=== PATIENT | female | born 1980 | race Caucasian/White ===

== ENCOUNTER 2021-07-23 10:17 | Day surgery (SDC) | payer SELFPAY, OTHER ==
[2021-07-23 11:40] LABS: Internal QC Validated? YES +Cl - CLEAR BKGD; Pregnancy, Urine Negative Negative
[2021-07-23 11:47] VITALS: BP 117/63; PULSE 82; RESP 14; TEMP 36.9; O2SAT 99; BMI 24.2
[2021-07-23] MEDS: Lactated Ringers 1,000 ML 15 ML IV (11:53)
[2021-07-23] MEDS: Cefazolin 2 GM in 0.9% Normal Saline 100 ML IV (13:03)
--- NOTE | 2021-07-23 13:04 | PCM.DC ---
Discharge Instructions Diet Discharge Diet: No restrictions Activity Discharge Activity: Return to Normal Activity May resume sexual activity in: No Restrictions Dressing / Incision Call your doctor if you observe: Fever of 101 or Higher, Inability to urinate and Inability to have a bowel movement Follow Up Care Please Follow Up With: Aissatou Sandy MD When: 2-3 weeks in the office with KUB for stent removal Test Results: Test results from this visit will be discussed in further detail at your follow-up appointment, if applicable. Discharge Plan Admission Attending Provider: Aissatou Sandy Primary Care Provider: Christo Warren Discharge Orders/Prescriptions Prescriptions: New ondansetron HCl [ondansetron HCl] 8 MG tablet 8 mg PO Q8H PRN PRN (Reason: Nausea) 7 Days Qty: 20 RF: 0 phenazopyridine [Pyridium] 200 MG tablet 200 mg PO TID PRN PRN (Reason: Bladder Spasms) 7 Days Qty: 30 RF: 0 sulfamethoxazole-trimethoprim [sulfamethoxazole-trimethoprim] 1 TABLET tablet 1 tab PO BID 3 Days Qty: 6 RF: 0 oxycodone-acetaminophen [Percocet] 5-325 mg tablet 1 tab PO Q8H PRN (Reason: pain) 7 Days Qty: 20 RF: 0 Continued calcium 600 mg Capsule 600 mg PO DAILY RF: 0 ftklvyjw-bgb-Vr-FA 1 mg Tablet 1 tab PO DAILY RF: 0 iron 18 mg Tablet 10 mg PO DAILY RF: 0 Referrals / Follow Up: Christo Warren MD [Primary Care Provider] - Disposition Disposition (needs filled in before D/C Order can be placed): Home, Self Care
--- NOTE | 2021-07-23 13:07 | PCM.OPRPT ---
Problems Associated Problem List Diagnoses (1) Kidney stone: (2) Hydronephrosis, right: Report of Operation Date of Procedure: 07/23/21 Pre-Operative Diagnosis: right renal calculus, right hydronephrosis Post-Operative Diagnosis: same, right ureteropelvic junction obstruction Surgery/Procedure Performed:: cystoscopy, right retrograde pyelogram, right ureteral stent insertion, right renal extracorporeal shockwave lithotripsy Surgeon: Aissatou Sandy Type of Anesthesia: General Specimen's removed: none Description of Procedure: The patient is a 41-year-old female with a right lower pole renal calculus with hydronephrosis consistent with a UPJ obstruction. She presents for evaluation and management of her stone. Informed consent was obtained. The patient was taken to the operating room and placed on the operating room table. Anesthesia monitored the head, neck, airway, IV access and vital signs throughout the case. Once anesthesia was appropriately administered, the patient was placed into dorsal lithotomy position and was prepped and draped in usual sterile fashion. The cystoscope was inserted through the urethra under direct visualization. The bladder mucosa in its entirety was visualized. The right ureteral orifice was very small, almost pinpoint and was unable to accommodate the 8 Moroccan cone-tip catheter at first. 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 There is hydronephrosis. At this time a 6 Moroccan 26 cm JJ stent was inserted over the Glidewire with good curling in the renal pelvis as well as the urinary bladder. The bladder was emptied and the cystoscope was removed. At this time the patient was positioned and 3000 shocks were applied to the lower pole renal calculus which appeared to be well fragmented at the conclusion of the case. At this time the patient was awakened and taken to the recovery room in good condition. There were no complications during this procedure. Grafts/Implants Used: 6x26 JJ stent Complications none Admit VTE Documentation VTE Present on Admission: Yes VTE Mechan Device Prophylaxis: SCD's VTE Pharm Prophylaxis ordered?: No Reason prophylaxis not ordered:: Treatment Not Indicated
[2021-07-23 14:15] VITALS: BP 117/63; BP 97/64; PULSE 61; RESP 12; TEMP 36.3; O2SAT 100
[2021-07-23 14:30] VITALS: BP 112/73; BP 117/63; PULSE 63; RESP 12; O2SAT 100
[2021-07-23 14:45] VITALS: BP 117/63; BP 119/79; PULSE 54; RESP 12; O2SAT 100
[2021-07-23 15:00] VITALS: BP 114/71; BP 117/63; PULSE 61; RESP 16; TEMP 35.9; O2SAT 100
[2021-07-23] MEDS: oxyCODONE 5 MG Tablet PO (15:30)
[2021-07-23] MEDS: Acetaminophen 325 MG Tablet PO (15:30)
[2021-07-23 16:00] VITALS: BP 114/67; BP 117/63; PULSE 63; RESP 16; TEMP 37.1; O2SAT 100
== END 2021-07-23 16:15 | disposition home or self-care (01) ==
LOC: SDC 10:18 → AC 10:18
PROVIDERS: Anesthesiology; PCP Family Medicine; Referring Provider Urology; Visit Provider Urology
PROC: (CPT 50590; principal; 2021-07-23 12:30)
DX: N13.2 Hydronephrosis with renal and ureteral calculous obstruction (principal)
CPT/HCPCS: 50590; 52332; 00873; 81025; 87426; C9803; J7120; C2617; J2405

== ENCOUNTER → 2021-08-08 | Outpatient (CLI) | payer SELFPAY, OTHER ==
--- NOTE | 2021-08-08 09:35 | RAD_ITS ---
INDICATION: kidney stones EXAMINATION/TECHNIQUE: X-RAY - XR Abdomen 1 View COMPARISON: None FINDINGS: BOWEL GAS PATTERN: Non-obstructive. Double-J right nephroureteral stent appears in appropriate position. FREE AIR: Not assessed on a single supine view. CALCIFICATIONS: There appears to be 0.9 cm and 0.8 cm renal calculi in the right lower renal pole. There is also a suspected 0.6 cm right upper pole calculus. The left renal shadow is difficult to delineate but no definitive calculi in the expected location of the left kidney. BONES AND SOFT TISSUES: No acute pathology. RAD/Abdomen Single View IMPRESSION: Right-sided nephrolithiasis with appropriate positioning of the double-J right nephroureteral stent. Electronically Signed: Tank Pichardo, at 13:40 EDT ,
== END | disposition home or self-care (01) ==
LOC: MTRAD 09:32
PROVIDERS: PCP Family Medicine; Referring Provider Urology; Visit Provider Urology
DX: N20.0 Calculus of kidney (principal)
CPT/HCPCS: 74018

== ENCOUNTER → 2021-10-01 | Outpatient (CLI) | payer SELFPAY, OTHER ==
--- NOTE | 2021-10-01 08:45 | RAD_ITS ---
STUDY: X-RAY - ABDOMEN/PELVIS REASON FOR EXAM: Female, 41 years old. KIDNEY STONE TECHNIQUE: Single AP view of the abdomen / pelvis. COMPARISON: Comparison is made with prior study 08/08/2021. FINDINGS: There is a moderate amount of colonic fecal material. A right-sided double-J stent catheter is seen with the proximal tip in the right renal pelvis and distal tip in the right side of the bladder. Normal soft tissue structures. Normal visualized osseous structures. RAD/Abdomen Single View IMPRESSION: Right-sided double-J stent catheter. No radiopacity is seen. Electronically Signed: Woody Marcus MD at 13:00 EDT ,
== END | disposition home or self-care (01) ==
PROVIDERS: PCP Family Medicine; Referring Provider Urology; Visit Provider Urology
DX: N20.0 Calculus of kidney (principal)
CPT/HCPCS: 74018

== ENCOUNTER → 2021-10-22 | Outpatient (CLI) | payer SELFPAY, OTHER ==
--- NOTE | 2021-10-22 10:10 | RAD_ITS ---
STUDY: X-RAY - ABDOMEN/PELVIS REASON FOR EXAM: Female, 41 years old. KIDNEY STONE TECHNIQUE: Single AP view of the abdomen / pelvis. COMPARISON: 10/01/2021 FINDINGS: Normal visualized lung bases. There is an unremarkable bowel gas pattern. Right ureteral stent. No definite ureteral stone. Normal soft tissue structures. Normal visualized osseous structures. RAD/Abdomen Single View IMPRESSION: Right ureteral stent. No definite ureteral stone. Electronically Signed: Brendan Henry MD at 17:32 EDT ,
== END | disposition home or self-care (01) ==
LOC: MTRAD 10:04
PROVIDERS: PCP Family Medicine; Referring Provider Urology; Visit Provider Urology
DX: N20.0 Calculus of kidney (principal)
CPT/HCPCS: 74018

== ENCOUNTER → 2021-12-12 | Outpatient (CLI) | payer SELFPAY, OTHER ==
--- NOTE | 2021-12-12 13:29 | US_ITS ---
STUDY: RENAL ULTRASOUND - COMPLETE REASON FOR EXAM: Female, 41 years old. UTEROPELVIC JUNCTION OBSTRUCTIONS TECHNIQUE: Ultrasound evaluation of the kidneys was performed with real-time and static lerner-scale imaging. COMPARISON: None. FINDINGS: RIGHT KIDNEY: Normal location of the right kidney, which is normal in size. The right kidney measures 10.9 cm x 3.3 cm x 5.1 cm. There is a normal cortex of the right kidney. The renal cortex measures 1.1 cm. There is no right renal mass or cyst. 2 small nonobstructive intrarenal calculi are seen. The larger measures 3 mm x 2 mm x 2 mm. There is no right hydronephrosis. DISTAL RIGHT URETER: There is non-visualization of the distal right ureter. There is no demonstrated right ureterovesical junction calculus. There is no demonstrated right ureteral jet. LEFT KIDNEY: Normal location of the left kidney, which is normal in size. The left kidney measures 11 cm x 5.1 cm x 4.6 cm. There is a normal cortex of the left kidney. The renal cortex measures 1.6 cm. There is no left renal mass or cyst. There are no left renal calculi. There is mild hydronephrosis of the left kidney. DISTAL LEFT URETER: There is non-visualization of the distal left ureter. There is no demonstrated left ureterovesical junction calculus. There is a visualized left ureteral jet. BLADDER: The distended urinary bladder has a volume of 128 ml. There is a normal wall thickness of the distended urinary bladder. There is no demonstrated mass within the urinary bladder. There are no demonstrated bladder calculi. US/Kidney and Bladder IMPRESSION: Mild degree of left hydronephrosis. There are 2, small nonobstructive right intrarenal calculi. Electronically Signed: Woody Marcus MD at 14:20 EDT ,
== END | disposition home or self-care (01) ==
PROVIDERS: PCP Family Medicine; Referring Provider Urology; Visit Provider Urology
DX: N13.0 Hydronephrosis with ureteropelvic junction obstruction (principal)
CPT/HCPCS: 76770

== ENCOUNTER → 2022-01-21 | Outpatient (CLI) | payer SELFPAY, OTHER ==
--- NOTE | 2022-01-21 10:02 | RAD_ITS ---
STUDY: X-RAY - ABDOMEN/PELVIS REASON FOR EXAM: Female, 41 years old. R STONE TECHNIQUE: Two AP supine views of the abdomen and pelvis. COMPARISON: None. FINDINGS: Normal visualized lung bases. There is an unremarkable bowel gas pattern. There is no demonstrated free abdominal air. The visualized liver, spleen and kidneys are grossly normal in size and morphology. Normal soft tissue structures. Normal visualized osseous structures. RAD/Abdomen Single View IMPRESSION: Normal x-ray examination of the abdomen and pelvis. Electronically Signed: Aziza Hernandez MD at 2:10 EST ,
== END | disposition home or self-care (01) ==
PROVIDERS: PCP Family Medicine; Referring Provider Urology; Visit Provider Urology
DX: N20.0 Calculus of kidney (principal)
CPT/HCPCS: 74018

== ENCOUNTER → 2023-03-19 | Outpatient (CLI) | payer SELFPAY, OTHER ==
--- NOTE | 2023-03-19 14:42 | CT_ITS ---
HISTORY: FLANK PAIN HX STONES. TECHNIQUE: Helically acquired images were obtained of the abdomen and pelvis without oral or IV contrast. A radiation dose optimization technique was used for this scan. 456 images. COMPARISON: XR 01/21/2022. FINDINGS: LOWER CHEST: Lung bases clear. BOWEL: Bowel nondilated. Appendix not visualized. No focal pericolonic inflammatory change. PERITONEUM: No significant free fluid. LIVER: Unremarkable. GALLBLADDER/BILIARY TREE: Gallbladder present. SPLEEN/PANCREAS/ADRENAL GLANDS: Nonenlarged. KIDNEYS AND URETERS: Mild right hydronephrosis without renal or ureteral calculus identified. No left nephrolithiasis or hydronephrosis. VESSELS: No abdominal aortic aneurysm. PELVIC ORGANS: Retroverted uterus with a mild left posterior lobulation . BONES: Intact. CT/Abdomen/Pelvis without Cont IMPRESSION: Mild right hydronephrosis without obstructing ureteral calculus identified, possibly recently passed calculus. Possible small uterine leiomyoma. Electronically Signed: Kimber Krause MD at 15:34 EST ,
== END | disposition home or self-care (01) ==
PROVIDERS: PCP Family Medicine; Referring Provider Urology; Visit Provider Urology
DX: R10.9 Unspecified abdominal pain (principal); Z87.442 Personal history of urinary calculi
CPT/HCPCS: 74176

== ENCOUNTER → 2023-04-28 | Outpatient (CLI) | payer SELFPAY, OTHER ==
--- NOTE | 2023-04-28 08:45 | US_ITS ---
EXAM: US RETROPERITONEAL LIMITED, RENAL CLINICAL INDICATION: RT HYDRONEPHROSIS HX STONES TECHNIQUE: Limited grayscale and color Doppler sonographic evaluation of the retroperitoneum was performed. COMPARISON: No relevant prior studies available. FINDINGS: RIGHT KIDNEY: Right kidney measures 10.5 cm in length. No hydronephrosis. No shadowing calculus. No perinephric collection is demonstrated. LEFT KIDNEY: Left kidney measures 10.3 cm in length. No hydronephrosis. No shadowing calculus. No perinephric collection is demonstrated. BLADDER: Urinary bladder is empty. US/Kidney and Bladder IMPRESSION: Normal-sized kidneys without hydronephrosis. Electronically Signed: Adelfo Walker MD at 16:57 EST ,
== END | disposition home or self-care (01) ==
LOC: US 08:44
PROVIDERS: PCP Family Medicine; Referring Provider Urology; Visit Provider Urology
DX: N13.30 Unspecified hydronephrosis (principal); Z87.442 Personal history of urinary calculi
CPT/HCPCS: 76770